=== PATIENT | female | born 1980 | race Asian ===

== ENCOUNTER 2019-12-14 02:22 | Emergency (ER) | payer OTHER ==
[~2019-12-14] VITALS: Ht 154.9 cm; Wt 63.6 kg
[2019-12-14] MEDS ORDERED: predniSONE 20 mg tablet PO ONE (03:20)
[2019-12-14] MEDS ORDERED: diphenhydrAMINE 25mg capsule PO ONE (03:20)
[2019-12-14] MEDS ORDERED: famotidine 20mg tablet PO ONE (03:20)
[2019-12-14] MEDS ORDERED: PRED20TA PO (03:22)
[2019-12-14 04:06] VITALS: BP 138/99
== END 2019-12-14 03:50 | disposition home or self-care (01) ==
LOC: ER 02:22
DX: L23.9 Allergic contact dermatitis, unspecified cause (principal); R21 Rash and other nonspecific skin eruption; F17.200 Nicotine dependence, unspecified, uncomplicated; Z79.899 Other long term (current) drug therapy
CPT/HCPCS: 99284; J7512; Q0163